=== PATIENT | male | born 1955 | race Caucasian/White ===

== ENCOUNTER → 2020-06-05 | Day surgery (SDC) | payer BC, MEDICARE ==
[2020-05-31 12:05] VITALS: BMI 29.4
[~2020-06-05] MED LIST: LACTATED RINGERS 1,000 ML IV SCH; LIDOCAINE 1% (10MG/ML) FOR IV START INTRADERMA ONE; PROPOFOL 10 MG/ML 20 ML VIAL IV ONE
[2020-06-05 10:32] VITALS: RESP 16; TEMP 98.6
--- NOTE | 2020-06-05 12:05 | P.PCN ---
Date of Procedure: 06/05/20 Procedure(s) Performed: BRIEF HISTORY: Patient is a 65-year-old pleasant white male scheduled for an elective colonoscopy as a part of screening for colorectal neoplasia PROCEDURE PERFORMED: Colonoscopy. PREOPERATIVE DIAGNOSIS Screening for colon cancer IV sedation per Anesthesia. PROCEDURE: After informed consent was obtained, the patient, was brought into the endoscopy unit. IV sedation was administered by Anesthesia under continuous monitoring. Digital rectal examination was normal. Initially the Olympus CF-160 flexible video colonoscope was then inserted in the rectum, gradually advanced into the cecum without any difficulty. Careful examination was performed as the scope was gradually being withdrawn. Ileocecal valve and the appendiceal orifice were visualized and appeared normal. Prep was excellent. Mucosa of the cecum, ascending colon, transverse colon, descending colon, sigmoid colon, and rectum appeared normal. Scattered sigmoid diverticulosis. Retroflexion was performed in the rectum and no lesions were seen. The patient tolerated the procedure well. IMPRESSION: Normal-appearing colon from rectum to cecum with no evidence of colorectal neoplasia. Scattered sigmoid diverticulosis. RECOMMENDATIONS: Findings of this examination were discussed with the patient as well as his family. He was advised to have a repeat screening colonoscopy in 10 years.
[2020-06-05 12:40] VITALS: BP 112/73; PULSE 56
== END ==
LOC: ORWHC2ENDO 10:03
PROVIDERS: ATTEND Internal Medicine Gastroenterology
DX: Z12.11 Encounter for screening for malignant neoplasm of colon (principal); K57.30 Diverticulosis of large intestine without perforation or abscess without bleeding; E07.9 Disorder of thyroid, unspecified; Z79.890 Hormone replacement therapy
CPT/HCPCS: G0121; J2704; 45378

== ENCOUNTER → 2022-08-17 | Outpatient (CLI) | payer MEDICARE ==
[2022-08-17 06:28] LABS: African American GFR (CKD) >90 (>60 ml/min/1.73 sqM); Blood Urea Nitrogen 17 mg/dL (9-20); Non-African American GFR(CKD) 85 (>60 ml/min/1.73 sqM)
--- NOTE | 2022-08-17 12:55 | NM ---
EXAMINATION TYPE: NM bone scan whole body DATE OF EXAM: 08/17/2022 COMPARISON: CT chest abdomen pelvis of the same date. HISTORY: M25.552 pain L hip, C41.9 Malignant neoplasm bone . Delayed whole-body scanning was performed following the injection of 23.7 mCi Tc 99m MDP. Images acq uired 5 hours post injection. Additional static images of the pelvis were obtained. FINDINGS: Increased radiotracer uptake demonstrated within the left proximal femur. Normal renal tracer uptake dimension within the bladder and kidneys. Radiotracer uptake demonstrated within the sternum and bila teral shoulders due to degenerative changes. Additional focal radiotracer uptake demonstrated within the mid right foot. No other concerning photopenic or increased radio tracer uptake. IMPRESSION: 1. Abnormal increased radiotracer uptake within the left proximal femur related to known malignant n eoplasm. 2. Focal radiotracer uptake demonstrated within the right midfoot which may related to metastatic di sease versus degenerative changes. Dedicated right foot radiographs recommended.
--- NOTE | 2022-08-17 17:48 | CT ---
EXAMINATION TYPE: CT ChestAbdPelvis w con DATE OF EXAM: 08/17/2022 INDICATION: Left hip pain, hip xray identified abnormal bone COMPARISON: None CT DLP: 1715 mGycm CONTRAST: Performed without Oral Contrast and with IV Contrast, patient injected with 100ml mL of Isovue 370. TECHNIQUE: Axial images at 5 mm thick sections. Reconstructed images in the coronal plane. Delayed images through the kidneys. FINDINGS: CT CHEST: Portion of the thyroid visualized is normal. There is a 0.7 cm nodule within the superior segment right lower lobe. Series 4 image 27. There is a 0.7 cm nodule within the left hilar region. Series 4 image 34. There is a 0.8 cm nodule within the right hilar region. Series 4 image 35. Additional evaluation with PET/CT is recommended. No enlarged mediastinal or hilar adenopathy is evident. The ascending aorta diameter at the level of the main pulmonary artery is 3.2 cm. The main pulmonary artery diameter at the bifurcation is 2.[address] ABDOMEN: Liver: There is a 1.8 cm hypodensity within the posterior right lobe liver suspicious for metastatic lesion. There are multiple scattered small hypodensities which are nonspecific. Hepatic cysts could be consid ered. Small metastatic lesions are not excluded. PET/CT may be useful. Ultrasound could be performed. Spleen: Normal Pancreas: Normal Adrenal glands: Left adrenal gland is enlarged measuring 3.8 cm suspicious for metastatic lesion. Rig ht adrenal gland appears normal. Gallbladder: Normal Kidneys: No masses are evident. No hydronephrosis is present. No cysts are present. Delayed images were obtained through the kidneys, which remain unremarkable. Aorta: Normal Inferior vena cava: Normal. CT PELVIS: No obvious circumferential mass is identified. Thickening through the sigmoid colon is not excluded. There are scattered areas of diverticulosis present. Study is without oral contrast causing limitatio n on evaluation of the bowel. Underlying neoplasm would be difficult to exclude. Appendix: Normal as visualized. Urinary bladder: Normal. Genitourinary structures: Prostate is enlarged. Osseous structures: There is a lytic region within the left femoral head compatible with a metastatic lesion. IMPRESSIONS: 1. At least 3 nodules within the lungs suspicious for metastatic type disease. 2. Enlarged left adrenal gland can be a metastatic lesion. 3. Lytic lesion within the left femoral head suspicious for metastasis. 4. Suspicious posterior right lobe liver lesion. Additional nodular indeterminate hypodense lesions w ithin the liver. 5. Primary lesion is not clearly identified. Consider additional workup such as colonoscopy. 6. PET CT recommended. This may identify additional suspicious areas for possible primary.
== END | disposition home or self-care (01) ==
LOC: RADCTMAIN 05:47
PROVIDERS: ATTEND Orthopaedic Surgery
DX: C41.9 Malignant neoplasm of bone and articular cartilage, unspecified (principal); M25.552 Pain in left hip
CPT/HCPCS: 82565; 84520; 71260; 74177; 78306; A9503; Q9967

== ENCOUNTER → 2023-06-04 | Outpatient (CLI) | payer MEDICARE ==
--- NOTE | 2023-06-05 10:54 | PE ---
EXAMINATION TYPE: PET CT fusion whole body DATE OF EXAM: 06/04/2023 CLINICAL INDICATION:Male, 68 years old with history of C41.9 C79.9; TECHNIQUE: Following the intravenous administration of 12 mCi of F-18 FDG, whole body images are pe rformed from the skull base to the midthigh. Images are reviewed on the computer in the coronal, axi al, and sagittal planes. Reconstructed rotating images are created on independent workstation and re viewed on the computer. A non-contrast CT is performed in conjunction with the PET scan. Glucose le georges 99 mg/dL COMPARISON: CT 08/17/2022, PET/CT 12/25/2022, nuclear bone scan 08/17/2022 FINDINGS: Mediastinal SUV mean is 1.3. Hepatic parenchyma SUV mean is 1.8. SKULL BASE AND NECK: No suspicious radiotracer activity. CHEST, MEDIASTINUM, AND HILAR REGION: * Abnormal uptake within the heart just posterior to the aorta axis SUV 3.7, previously 16.1 ABDOMEN AND PELVIS: No suspicious radiotracer activity. * Large left adrenal mass measuring similarly at 5.8 x 4.3 cm Max SUV 12.7, previously 25.0 * Near the dome of the liver max SUV 2.8, previously 11.1. Misregistration artifact likely from resp iration limits localization of this lesion and measurements. * Area within the mesentery seen on prior no longer visualized. * Scattered foci in the anterior abdominal wall of abnormal FDG activity on prior no longer visualiz ed. MUSCULOSKELETAL STRUCTURES: * Abnormal uptake within the left arm medially max SUV 3.0 previously 33.3. * Abnormal uptake within the right foot second metatarsal with patchy destructive changes to the bon e. Max SUV 8.[address]: Right chest wall [id number] with tip in the superior vena cava. Scattered colonic divert icula. Left hip arthroplasty changes. Hardware appears intact. IMPRESSION: Overall positive response to therapy of the metastatic foci and increased slightly in FDG activity of the right second metatarsal bony lesion. There was decrease decrease in FDG activity of the lesion w ithin the heart, the left arm and left adrenal gland. A mesenteric focus and anterior abdominal wall foci seen on prior no longer visualized.
== END | disposition home or self-care (01) ==
LOC: RADPETMAIN 07:09
PROVIDERS: ATTEND Physician Assistant
DX: C79.51 Secondary malignant neoplasm of bone (principal); C41.9 Malignant neoplasm of bone and articular cartilage, unspecified
CPT/HCPCS: 78816; A9552